=== PATIENT | female | born 2000 | race Caucasian/White ===

== ENCOUNTER 2023-04-19 11:27 | Emergency (ER) | payer BC, OTHER, SELFPAY ==
[2023-04-19 11:32] VITALS: BP 126/66; PULSE 86; RESP 18; TEMP 36.4; O2SAT 100
--- NOTE | 2023-04-19 15:04 | ED_ITS ---
HPI - General Adult General Time Seen by Provider: 15:04 <Harley Branch MD - Last Filed: 06/26/23 12:36> Date Seen: 04/19/23 <Harley Branch MD - Last Filed: 06/26/23 12:36> Chief complaint: Abdominal Pain <Harley Branch MD - Last Filed: 06/26/23 12:36> Stated complaint: blood in stool, mouth sores, abdominal pain <Harley Branch MD - Last Filed: 06/26/23 12:36> Time Seen by Provider: 04/19/23 15:01 <Harley Branch MD - Last Filed: 06/26/23 12:36> Source: patient <Harley Branch MD - Last Filed: 06/26/23 12:36> Mode of arrival: ambulatory <Harley Branch MD - Last Filed: 06/26/23 12:36> Limitations: no limitations <Harley Branch MD - Last Filed: 06/26/23 12:36> History of Present Illness HPI narrative: Madhuri is a 23-year-old female past medical history includes depression and anxiety presents emergency department via private car with abdominal pain. Patient states that intermittently over the last year she has had this problem, it started out as constipation, she thought she had hemorrhoids and had some bright red blood in her stool, with rectal pain, this resolved, she usually has multiple bowel movements per day which are usually loose, which is her normal, she does get intermittent bleeding with those loose stools, for the last 2 days she has not had a bowel movement. She tried some MiraLax and had some loose stool, but continues to have a generalized abdominal pain which is new for her. She was concerned because her mother had Crohn's disease. Patient denies any urinary complaints, patient uses an IUD. She denies any fevers or chills, no nausea vomiting, patient is eating and drinking normally. No changes with eating. Pain is lower abdominal area. Crampy in nature. No other concerns at this time. <Harley Branch MD - Last Filed: 06/26/23 12:36> Related Data Home medications: Home Medications Medication Instructions Recorded Confirmed lisdexamfetamine 30 mg capsule 30 mg PO DAILY 04/19/23 05/22/23 (Vyvanse) fluoxetine 40 mg capsule 80 mg PO QDAY 05/22/23 05/22/23 <Harley Branch MD - Last Filed: 06/26/23 12:36> Allergies/adverse reactions: Allergies Allergy/AdvReac Type Severity Reaction Status Date / Time No Known Drug Allergies Allergy Verified 05/22/23 14:45 <Harley Branch MD - Last Filed: 06/26/23 12:36> Review of Systems Status of ROS: Reports: 10 or more systems reviewed and unremarkable except as noted in History and below <Harley Branch MD - Last Filed: 06/26/23 12:36> [facility] Medical History: Medical History (Updated 05/22/23 @ 15:39 by Geovanna Kay MD) ADHD ?F90.9 - Attention-deficit hyperactivity disorder, unspecified type (ICD-10) Generalized anxiety disorder ?F41.1 - Generalized anxiety disorder (ICD-10) Major depression ?F32.9 - Major depressive disorder, single episode, unspecified (ICD-10) Bloody stools (~03/2022) ?K92.1 - Melena (ICD-10) <Harley Branch MD - Last Filed: 06/26/23 12:36> Surgical History: Surgical History (Updated 05/22/23 @ 15:36 by Geovanna Kay MD) No history of previous surgery <Harley Branch MD - Last Filed: 06/26/23 12:36> Family History: Family History (Updated 05/22/23 @ 15:37 by Geovanna Kay MD) Mother Crohn's disease Anxiety and depression Maternal Grandfather Bipolar disorder <Harley Branch MD - Last Filed: 06/26/23 12:36> Social History: Social History (Updated 05/23/23 @ 11:16 by Valerie Stafford ~ CTA) Narrative: , 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[employer], 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 Never smoker 4 alcoholic drinks a month No drug use What is your current living situation?: declined to answer Problems where you live: declined to answer In the past 12 months, utilities in danger of being shut off: declined to answer In past 12 months, lack of transportation kept you from medical appts, meetings, work, or getting things needed for daily living: declined to answer In the past 12 mos, have been you worried that your food would run out before you had money to buy more?: declined to answer In the past 12 mos, the food you bought just didn't last and you didn't have money to buy more?: declined to answer Smoking Status: Never smoker Do you use any of these nicotine containing products: None Second hand tobacco smoke exposure: No How often do you have a drink containing alcohol: never How often do you have six or more drinks on one occasion: Never AUDIT-C Alcohol total score: 0 Non-prescribed substance use: denies use How often does anyone, including family, friends and others, physically hurt you : decline to answer How often does anyone, including family, friends and others, insult or talk down to you: decline to answer How often does anyone, including family, friends and others, threaten you with harm: decline to answer How often does anyone, including family, friends and others, scream or curse at you: decline to answer Little interest or pleasure in doing things: not at all Feeling down, depressed, or hopeless: more than half the days service: No <Harley Branch MD - Last Filed: 06/26/23 12:36> Exam Narrative: Exam Narrative: General: No obvious distress sitting comfortably HEENT: Pupils equal round reactive light. Lungs: Clear to auscultation Heart: Normal sinus rhythm Abdomen: Mild tenderness to palpation the lower abdominal area, bowel sounds hyperactive, no guarding or rebound Muscle skeletal: +5 strength upper lower extremity Neuro: Alert awake and oriented x3 <Harley Branch MD - Last Filed: 06/26/23 12:36> Const: Vital Signs, click to edit/add: Vital Signs - 24 hr 04/19/23 11:32 Temperature 97.6 F Pulse Rate [Right Pulse Oximeter] 86 Respiratory Rate 18 Blood Pressure [Ri ght Upper Arm] 126/66 Pulse Oximetry 100 Oxygen Delivery Me thod Room Air <Harley Branch MD - Last Filed: 06/26/23 12:36> Vital Signs, click to edit/add: Vital Signs - 24 hr 04/19/23 11:32 Temperature 97.6 F Pulse Rate [Right Pulse Oximeter] 86 Respiratory Rate 18 Blood Pressure [Ri ght Upper Arm] 126/66 Pulse Oximetry 100 Oxygen Delivery Me thod Room Air <Rosario Angel MD - Last Filed: 04/19/23 20:56> Course Course ED Course: 3:20 PM: AIDET performed. Vitals are normal at this time, workup will include CBC, CRP, CMP, lipase, serum test, will await for lab results to see if further imaging will be obtained, will likely obtain XR abdomen decubitus and flat upright. Differential diagnosis include but not limited to appendicitis, bowel perforation, ectopic , volvulus and bowel obstruction. Other considerations include inflammatory bowel disease, cholecystitis, pancreatitis, hepatitis, gastritis, GERD pyelonephritis, nephrolithiasis, PID, cervicitis, IUP, DUB, ovarian cyst torsion as well as all etiologies <Harley Branch MD - Last Filed: 06/26/23 12:36> Reevaluation(s) Time of Reevaluation #1: 16:12 <Harley Branch MD - Last Filed: 06/26/23 12:36> Reevaluation #1: CBC showed leukocytosis with a left shift, CRP elevated at 6.1, urinalysis pending, metabolic panel within normal limits, the plan to obtain CT abdomen pelvis with IV contrast to rule out any intra-abdominal pathology. Patient's pain has been controlled. <Harley Branch MD - Last Filed: 06/26/23 12:36> Reevaluation #2: Urine preg negative. <Rosario Angel MD - Last Filed: 04/19/23 20:56> Reevaluation #3: Is asked to follow up with the patient's CT report which shows mild hyperemia and wall thickening of the terminal ileum and cecum. We discussed following up with GI for a colonoscopy and further diagnosis. Do have a strong suspicion of course for Crohn's disease. Unfortunately, patient is getting in 6 days so she is asking for some kind of symptom relief right away. We discussed putting her on a prednisone taper which the patient happily accepts. <Rosario Angel MD - Last Filed: 04/19/23 20:56> Vital Signs Vital signs: Initial Vital Signs Temperature 97.6 F 04/19/23 11:32 Temperature Source Temporal Artery Scan 04/19/23 11:32 Pulse Rate 86 04/19/23 11:32 Respiratory Rate 18 04/19/23 11:32 Blood Pressure 126/66 04/19/23 11:32 Blood Pressure Mean 86 04/19/23 11:32 Blood Pressure Position Sitting 04/19/23 11:32 Pulse Oximetry 100 04/19/23 11:32 Oxygen Delivery Method Room Air 04/19/23 11:32 Vital Signs Temperature 97.6 F 04/19/23 11:32 Pulse Rate 86 04/19/23 11:32 Respiratory Rate 18 04/19/23 11:32 Blood Pressure 126/66 04/19/23 11:32 Pulse Oximetry 100 04/19/23 11:32 Oxygen Delivery Method Room Air 04/19/23 11:32 Temperature 97.6 F 04/19/23 11:32 Pulse Rate 86 04/19/23 11:32 Respiratory Rate 18 04/19/23 11:32 Blood Pressure 126/66 04/19/23 11:32 Pulse Oximetry 100 04/19/23 11:32 Oxygen Delivery Method Room Air 04/19/23 11:32 <Harley Branch MD - Last Filed: 06/26/23 12:36> Initial Vital Signs Temperature 97.6 F 04/19/23 11:32 Temperature Source Temporal Artery Scan 04/19/23 11:32 Pulse Rate 86 04/19/23 11:32 Respiratory Rate 18 04/19/23 11:32 Blood Pressure 126/66 04/19/23 11:32 Blood Pressure Mean 86 04/19/23 11:32 Blood Pressure Position Sitting 04/19/23 11:32 Pulse Oximetry 100 04/19/23 11:32 Oxygen Delivery Method Room Air 04/19/23 11:32 Vital Signs Temperature 97.6 F 04/19/23 11:32 Pulse Rate 86 04/19/23 11:32 Respiratory Rate 18 04/19/23 11:32 Blood Pressure 126/66 04/19/23 11:32 Pulse Oximetry 100 04/19/23 11:32 Oxygen Delivery Method Room Air 04/19/23 11:32 Temperature 97.6 F 04/19/23 11:32 Pulse Rate 86 04/19/23 11:32 Respiratory Rate 18 04/19/23 11:32 Blood Pressure 126/66 04/19/23 11:32 Pulse Oximetry 100 04/19/23 11:32 Oxygen Delivery Method Room Air 04/19/23 11:32 <Rosario Angel MD - Last Filed: 04/19/23 20:56> Medical Decision Making MDM Narrative Medical decision making narrative: 23-year-old female with abdominal discomfort diarrhea. Signs and symptoms of her complains concerning for Crohn's disease. Patient is getting in 6 days therefore we will put her on steroid per above. She will follow up with GI for further management diagnoses. <Rosario Angel MD - Last Filed: 04/19/23 20:56> Lab Data Lab results reviewed: Yes I reviewed the patient's lab results <Rosario Angel MD - Last Filed: 04/19/23 20:56> Labs: Lab Results 04/19/23 04/19/23 Range/Units 15:15 15:19 WBC 12.72 H (4.50-11.00) K/uL RBC 5.21 H (4.00-5.20) m/uL Hgb 14.5 (12.0-16.0) gm/dL Hct 44.4 (33.0-51.0) % MCV 85 (80-100) fL MCH 28 (26-34) pg MCHC 33 (32-36) gm/dL RDW Coeff of Herbert 12.0 (11.5-15.5) % Plt Count 347 (140-440) K/uL Neut % (Auto) 80.7 H (42.0-72.0) % Lymph % (Auto) 10.6 L (20-44) % [place] % (Auto) 7.9 (0.0-11.0) % Eos % (Auto) 0.6 (0.0-7.0) % Baso % (Auto) 0.1 (0.0-3.0) % Neut # (Auto) 10.30 H (1.7-7.0) K/uL Lymph # (Auto) 1.30 (0.90-2.90) K/uL [place] # (Auto) 1.00 H (0.00-0.90) K/UL Eos # (Auto) 0.10 (0.00-0.50) K/uL Baso # (Auto) 0.00 (0.00-0.30) K/uL Abs Immat Gran (auto) 0.00 (0.00-0.30) K/uL Imm/Tot Granulo (auto) 0.1 % Sodium 134 L (135-149) mmol/L Potassium 3.9 (3.6-5.1) mmol/L Chloride 98 (96-114) mmol/L Carbon Dioxide 28 (20-32) mmol/L Anion Gap 8 (7-15) mEq/L BUN 12 (5-24) mg/dL Creatinine 0.7 (0.5-1.5) mg/dL Estimated Creat Clear 113.43 Estimated GFR 125 ml/min Glucose 91 (60-115) mg/dL Calcium 9.9 (8.4-10.6) mg/dL Total Bilirubin 0.7 (0.1-1.5) mg/dL AST 26 (12-35) U/L ALT 20 (4-35) U/L Alkaline Phosphatase 82 (40-150) U/L C-Reactive Protein 6.1 H (0.5-1.0) mg/dL Total Protein 8.5 H (6.0-8.3) g/dL Albumin 4.8 (3.3-5.0) g/dL HCG, Qual Negative (Negative) Urine Color Yellow (Yellow) Urine Appearance Clear (Clear) Urine pH 7.0 (5.0-8.5) Ur Specific [place] 1.025 (1.000-1.030) Urine Protein Trace A (Negative) Urine Glucose (UA) Negative (Negative) Urine Ketones 1+ A (Negative) Urine Blood Negative (Negative) Urine Nitrite Negative (Negative) Urine Bilirubin Negative (Negative) Urine Urobilinogen 0.2 (0.2-1.0) Ur Leukocyte Esterase Negative (Negative) Urine RBC 0-2 (0-2) Urine WBC 0-2 (0-5) Urine WBC Clumps Few A (None) Ur Squamous Epith Cells Few (None-Few) Urine Bacteria Moderate A (None) Urine Mucus Few A (None) <Harley Branch MD - Last Filed: 06/26/23 12:36> Lab Results 04/19/23 04/19/23 Range/Units 15:15 15:19 WBC 12.72 H (4.50-11.00) K/uL RBC 5.21 H (4.00-5.20) m/uL Hgb 14.5 (12.0-16.0) gm/dL Hct 44.4 (33.0-51.0) % MCV 85 (80-100) fL MCH 28 (26-34) pg MCHC 33 (32-36) gm/dL RDW Coeff of Herbert 12.0 (11.5-15.5) % Plt Count 347 (140-440) K/uL Neut % (Auto) 80.7 H (42.0-72.0) % Lymph % (Auto) 10.6 L (20-44) % [place] % (Auto) 7.9 (0.0-11.0) % Eos % (Auto) 0.6 (0.0-7.0) % Baso % (Auto) 0.1 (0.0-3.0) % Neut # (Auto) 10.30 H (1.7-7.0) K/uL Lymph # (Auto) 1.30 (0.90-2.90) K/uL [place] # (Auto) 1.00 H (0.00-0.90) K/UL Eos # (Auto) 0.10 (0.00-0.50) K/uL Baso # (Auto) 0.00 (0.00-0.30) K/uL Abs Immat Gran (auto) 0.00 (0.00-0.30) K/uL Imm/Tot Granulo (auto) 0.1 % Sodium 134 L (135-149) mmol/L Potassium 3.9 (3.6-5.1) mmol/L Chloride 98 (96-114) mmol/L Carbon Dioxide 28 (20-32) mmol/L Anion Gap 8 (7-15) mEq/L BUN 12 (5-24) mg/dL Creatinine 0.7 (0.5-1.5) mg/dL Estimated Creat Clear 113.43 Estimated GFR 125 ml/min Glucose 91 (60-115) mg/dL Calcium 9.9 (8.4-10.6) mg/dL Total Bilirubin 0.7 (0.1-1.5) mg/dL AST 26 (12-35) U/L ALT 20 (4-35) U/L Alkaline Phosphatase 82 (40-150) U/L C-Reactive Protein 6.1 H (0.5-1.0) mg/dL Total Protein 8.5 H (6.0-8.3) g/dL Albumin 4.8 (3.3-5.0) g/dL HCG, Qual Negative (Negative) Urine Color Yellow (Yellow) Urine Appearance Clear (Clear) Urine pH 7.0 (5.0-8.5) Ur Specific [place] 1.025 (1.000-1.030) Urine Protein Trace A (Negative) Urine Glucose (UA) Negative (Negative) Urine Ketones 1+ A (Negative) Urine Blood Negative (Negative) Urine Nitrite Negative (Negative) Urine Bilirubin Negative (Negative) Urine Urobilinogen 0.2 (0.2-1.0) Ur Leukocyte Esterase Negative (Negative) Urine RBC 0-2 (0-2) Urine WBC 0-2 (0-5) Urine WBC Clumps Few A (None) Ur Squamous Epith Cells Few (None-Few) Urine Bacteria Moderate A (None) Urine Mucus Few A (None) <Rosario Angel MD - Last Filed: 04/19/23 20:56> Imaging Data CT scan - abdomen: Attestation: I have reviewed the pertinent imaging results. <Rosario Angel MD - Last Filed: 04/19/23 20:56> Radiologist's impression: CT abdomen and pelvis acquired with 89 cc Isovue 370 IV contrast. COMPARISON: None. FINDINGS: Lower chest: The visualized lower lungs are aerated. No pleural or pericardial effusion. ABDOMEN: Liver: Normal enhancement. Focal fatty infiltration adjacent to the falciform ligament. Gallbladder and biliary: Normal gallbladder without radiopaque stone. Normal caliber bile ducts. Spleen: Normal size and enhancement. Pancreas: Normal enhancement without peripancreatic inflammatory changes or ductal dilatation. Adrenal glands: Normal adrenal glands. Kidneys and ureters: Normal enhancement. No radio-opaque calculi. No hydroureteronephrosis. GI tract: The stomach is relatively decompressed. Normal caliber small and large bowel loops. Normal appendix. Mild hyperemia and wall thickening of the terminal ileum and cecum. No discrete areas of complex penetrating diseases or fibrous stenotic dilatation. Vascular structures: Normal caliber abdominal aorta. Lymph nodes: Enlarged and borderline enlarged right lower quadrant lymph nodes measuring up to 15 millimeters. Peritoneum: Trace free fluid, potentially physiologic. PELVIS: Genitourinary system: Although relatively decompressed there is suggestion of circumferential wall thickening of the urinary bladder. Recommend correlation with urinalysis if not already performed to assess for underlying cystitis. Appropriately positioned IUD. Dominant left ovarian cyst. SKELETAL STRUCTURES AND SOFT TISSUES: No suspicious lytic or blastic lesions. IMPRESSION: 1. Mild hyperemia and wall thickening of the terminal ileum and cecum. No discrete areas of complex penetrating diseases or fibro stenotic dilatation. Findings are nonspecific however can be seen in the setting of underlying inflammatory bowel disease if clinically warranted. No focal drainable fluid collections. 2. Although relatively decompressed there is suggestion of circumferential wall thickening of the urinary bladder. Recommend correlation with urinalysis if not already performed to assess for underlying cystitis. 3. Enlarged and borderline enlarged right lower quadrant lymph nodes measuring up to 15 millimeters. Bowel incompletely characterized on this exam, given concordant findings of the terminal ileum and cecum, these may be reactive. Other differential considerations include mesenteric lymphadenitis, infectious, or lymphoproliferative etiology. <Rosario Angel MD - Last Filed: 04/19/23 20:56> Discharge Plan Discharge Clinical Impression: Bowel wall thickening, Diarrhea, Abdominal pain <Harley Branch MD - Last Filed: 06/26/23 12:36> Patient Disposition: Home, Self-Care <Harley Branch MD - Last Filed: 06/26/23 12:36> Condition: Stable <Harley Branch MD - Last Filed: 06/26/23 12:36> Additional Instructions: Your workup today revealed thickening of the wall of the intestines. You do need a colonoscopy to further determine the meaning of this. In the meantime will try a steroid taper to see if we can get your symptoms better controlled until you get your workup done with a it risk and assurance manager. We will start prednisone 40 mg daily for 7 days then go down to 35 mg daily for 7 days (you will have 20 mg, 10 mg and 5 mg tablets prescribed to). You should continue tapering after that, however a new prescription should be provided by a it risk and assurance manager or your primary care provider. <Harley Branch MD - Last Filed: 06/26/23 12:36> Prescriptions: No Action fluoxetine 40 mg capsule 80 mg PO QDAY Vyvanse 30 mg capsule 30 mg PO DAILY <Harley Branch MD - Last Filed: 06/26/23 12:36> Follow Up/Referrals: Katherine Brown PA-C [Primary Care Provider] - <Harley Branch MD - Last Filed: 06/26/23 12:36> Stand Alone Forms: MyHealth Info Instructions <Harley Branch MD - Last Filed: 06/26/23 12:36>
[2023-04-19 15:26] LABS: Basophils Percent Auto 0.1 % (0.0-3.0); Eosinophils Percent Auto 0.6 % (0.0-7.0); Hematocrit 44.4 % (33.0-51.0); Hemoglobin* 14.5 gm/dL (12.0-16.0); Immature Granulocytes Pct Auto 0.1 %; Lymphocytes Percent Auto 10.6 % (20-44); Mean Corpuscular HGB Conc 33 gm/dL (32-36); Mean Corpuscular Hemoglobin 28 pg (26-34); Mean Corpuscular Volume 85 fL (80-100); Monocytes Percent Auto 7.9 % (0.0-11.0); Neutrophils Percent Auto 80.7 % (42.0-72.0); Platelet Count* 347 K/uL (140-440); Red Blood Count 5.21 m/uL (4.00-5.20); White Blood Count* 12.72 K/uL (4.50-11.00)
[2023-04-19 15:27] LABS: Slide Review Reflex No
[2023-04-19 15:30] LABS: Appearance Urine Clear (Clear); Bilirubin Urine Negative (Negative); Blood Urine Negative (Negative); Color Urine Yellow (Yellow); Glucose Urine Negative (Negative); Ketones Urine 1+ (Negative); Leukocyte Esterase Urine Negative (Negative); Nitrite Urine Negative (Negative); Protein Urine Trace (Negative); Specific Gravity Urine 1.025 (1.000-1.030); Urobilinogen Urine 0.2 (0.2-1.0)
[2023-04-19 15:40] LABS: RBC Urine 0-2 (0-2); WBC Urine 0-2 (0-5)
[2023-04-19 15:41] LABS: Bacteria Urine Moderate; Mucus Urine Few; Squamous Epithelial Cell Urine Few (None-Few); WBC Clumps Urine Few
[2023-04-19 15:42] LABS: Albumin* 4.8 g/dL (3.3-5.0); Chloride* 98 mmol/L (96-114); Sodium* 134 mmol/L (135-149)
[2023-04-19 15:43] LABS: Potassium* 3.9 mmol/L (3.6-5.1)
[2023-04-19 15:45] LABS: Alanine Aminotransferase* 20 U/L (4-35); Alkaline Phosphatase* 82 U/L (40-150); Anion Gap 8 mEq/L (7-15); Aspartate Amino Transferase* 26 U/L (12-35); Bilirubin Total* 0.7 mg/dL (0.1-1.5); Blood Urea Nitrogen* 12 mg/dL (5-24); Carbon Dioxide* 28 mmol/L (20-32); Creatinine* 0.7 mg/dL (0.5-1.5); Est. Creatinine Clearance* 113.43; Estimated Glomerular Filt Rate 125 ml/min; Total Protein* 8.5 g/dL (6.0-8.3)
[2023-04-19 15:46] LABS: Calcium* 9.9 mg/dL (8.4-10.6); Glucose* 91 mg/dL (60-115)
[2023-04-19 15:48] LABS: C Reactive Protein* 6.1 mg/dL (0.5-1.0)
--- NOTE | 2023-04-19 16:10 | CRLHL7_ITS ---
For Patients: As a result of the Century Cures Act, medical imaging exams and procedure reports are released immediately into your electronic medical record. You may view this report before your referring provider. If you have questions, please contact your health care provider. INDICATION: abdominal pain, blood in stool, family history of Crohns TECHNIQUE: CT abdomen and pelvis acquired with 89 cc Isovue 370 IV contrast. COMPARISON: None. FINDINGS: Lower chest: The visualized lower lungs are aerated. No pleural or pericardial effusion. ABDOMEN: Liver: Normal enhancement. Focal fatty infiltration adjacent to the falciform ligament. Gallbladder and biliary: Normal gallbladder without radiopaque stone. Normal caliber bile ducts. Spleen: Normal size and enhancement. Pancreas: Normal enhancement without peripancreatic inflammatory changes or ductal dilatation. Adrenal glands: Normal adrenal glands. Kidneys and ureters: Normal enhancement. No radio-opaque calculi. No hydroureteronephrosis. GI tract: The stomach is relatively decompressed. Normal caliber small and large bowel loops. Normal appendix. Mild hyperemia and wall thickening of the terminal ileum and cecum. No discrete areas of complex penetrating diseases or fibrous stenotic dilatation. Vascular structures: Normal caliber abdominal aorta. Lymph nodes: Enlarged and borderline enlarged right lower quadrant lymph nodes measuring up to 15 millimeters. Peritoneum: Trace free fluid, potentially physiologic. PELVIS: Genitourinary system: Although relatively decompressed there is suggestion of circumferential wall thickening of the urinary bladder. Recommend correlation with urinalysis if not already performed to assess for underlying cystitis. Appropriately positioned IUD. Dominant left ovarian cyst. SKELETAL STRUCTURES AND SOFT TISSUES: No suspicious lytic or blastic lesions. IMPRESSION: 1. Mild hyperemia and wall thickening of the terminal ileum and cecum. No discrete areas of complex penetrating diseases or fibro stenotic dilatation. Findings are nonspecific however can be seen in the setting of underlying inflammatory bowel disease if clinically warranted. No focal drainable fluid collections. 2. Although relatively decompressed there is suggestion of circumferential wall thickening of the urinary bladder. Recommend correlation with urinalysis if not already performed to assess for underlying cystitis. 3. Enlarged and borderline enlarged right lower quadrant lymph nodes measuring up to 15 millimeters. Bowel incompletely characterized on this exam, given concordant findings of the terminal ileum and cecum, these may be reactive. Other differential considerations include mesenteric lymphadenitis, infectious, or lymphoproliferative etiology. Please note that all CT scans at this facility use dose modulation, iterative reconstruction, and/or weight-based dosing when appropriate to reduce radiation dose to as low as reasonably achievable. Dictated by Julian Leal MD @ 04/19/2023 8:30:57 PM (Electronically Signed)
[2023-04-19 16:43] LABS: HCG Qualitative Serum* Negative (Negative)
== END 2023-04-19 21:10 | disposition home or self-care (01) ==
PROVIDERS: Student in an Organized Health Care Education/Training Program; Emergency Provider Family Medicine; PCP Physician Assistant
DX: K63.89 Other specified diseases of intestine (principal); R19.7 Diarrhea, unspecified; R10.9 Unspecified abdominal pain
CPT/HCPCS: 36415; 74177; 80053; 81003; 81015; 84703; 85025; 86140; 87086; 99284; 99285; Q9967

== ENCOUNTER 2023-05-22 15:06 | Outpatient (CLI) | payer BC, OTHER, SELFPAY | END 2023-05-22 15:07 | disposition home or self-care (01) | PROVIDERS: PCP Family Medicine; Visit Provider Family Medicine | DX: Z00.00 Encounter for general adult medical examination without abnormal findings (principal); R53.83 Other fatigue; K63.9 Disease of intestine, unspecified; K92.1 Melena | CPT/HCPCS: 80053; 80061; 84443 ==

== ENCOUNTER 2024-03-28 16:09 | Emergency (ER) | payer BC, OTHER, SELFPAY ==
[2024-03-28 16:15] VITALS: BP 116/65; PULSE 90; RESP 20; TEMP 36.7; O2SAT 98; BMI 29.1
--- NOTE | 2024-03-28 16:43 | ED_ITS ---
HPI - General Adult General Chief complaint: Abdominal Pain Stated complaint: Crohn's flareup, bloody stools Time Seen by Provider: 03/28/24 16:13 History of Present Illness HPI narrative: This 24-year-old female has Crohn's disease and was in to see her party planner yesterday. She has had a flare-up over the last couple weeks which includes some dark stool. Her hemoglobin yesterday was 9.0. She has had some ongoing stools like this so her doctor recommended she come in to have her hemoglobin checked. She is not currently on any medicine to control her Crohn's symptoms. She does not yet qualify for a biologic and this process is currently taking place. Her doctor did send in a prescription for a steroid which she has not yet started. She arrives here with normal vital signs and appears to be in no acute distress. She does not report any ongoing pain. She does have some brief episodes of crampy pain. She states that she is taking food and drink normally. Related Data Home Medications ?Medication ?Instructions ?Recorded ?Confirmed lisdexamfetamine 30 mg capsule 30 mg PO DAILY 04/19/23 05/22/23 (Vyvanse) fluoxetine 40 mg capsule 80 mg PO QDAY 05/22/23 03/28/24 mercaptopurine 50 mg tablet 100 mg PO DAILY 03/28/24 03/28/24 Allergies Allergy/AdvReac Type Severity Reaction Status Date / Time No Known Drug Allergies Allergy Verified 05/22/23 14:45 Review of Systems Status of ROS: Reports: 10 or more systems reviewed and unremarkable except as noted in History and below Narrative: Constitutional: No fevers, no weight gain or loss. Eyes: No discharge. No vision changes. HENT: No congestion, no sore throat, no ear pain. Cardiovascular: No chest pain, no palpitations. Respiratory: No shortness of breath, no wheezes, no cough. Gastrointestinal: Crampy abdominal pain episodes. Dark colored stools. Genitourinary: No dysuria, no hematuria. Musculoskeletal: Normal range of motion. Skin: No rashes, no pruritis. Neurological: No dizziness, weakness, sensory change, speech change. Endo/Heme/Allergies: No bruising or bleeding. No polydipsia. Pysch: no suicidality, no anxiety, no insomnia. All other systems reviewed and are negative. [facility] Medical History (Updated 03/28/24 @ 18:10 by Royce Anderson MD) ADHD ?F90.9 - Attention-deficit hyperactivity disorder, unspecified type (ICD-10) Generalized anxiety disorder ?F41.1 - Generalized anxiety disorder (ICD-10) Major depression ?F32.9 - Major depressive disorder, single episode, unspecified (ICD-10) Bloody stools (~03/2022) ?K92.1 - Melena (ICD-10) Surgical History (Updated 05/22/23 @ 15:36 by Geovanna Kay MD) No history of previous surgery Family History (Updated 05/22/23 @ 15:37 by Geovanna Kay MD) Mother Crohn's disease Anxiety and depression Maternal Grandfather Bipolar disorder Social History (Updated 05/23/23 @ 11:16 by Valerie Stafford ~ [facility]) Narrative: , 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 [employer], no children Never smoker 4 alcoholic drinks a month No drug use What is your current living situation?: declined to answer Problems where you live: declined to answer In the past 12 months, utilities in danger of being shut off: declined to answer In past 12 months, lack of transportation kept you from medical appts, meetings, work, or getting things needed for daily living: declined to answer In the past 12 mos, have been you worried that your food would run out before you had money to buy more?: declined to answer In the past 12 mos, the food you bought just didn't last and you didn't have money to buy more?: declined to answer Smoking Status: Never smoker Do you use any of these nicotine containing products: None Second hand tobacco smoke exposure: No How often do you have a drink containing alcohol: never How often do you have six or more drinks on one occasion: Never AUDIT-C Alcohol total score: 0 Non-prescribed substance use: denies use How often does anyone, including family, friends and others, physically hurt you : decline to answer How often does anyone, including family, friends and others, insult or talk down to you: decline to answer How often does anyone, including family, friends and others, threaten you with harm: decline to answer How often does anyone, including family, friends and others, scream or curse at you: decline to answer Little interest or pleasure in doing things: not at all Feeling down, depressed, or hopeless: more than half the days service: No Exam Narrative: Exam Narrative: Constitutional: Well-developed, well-nourished, no acute distress. HEENT: Normocephalic, atraumatic. Neck: Normal range of motion. Nontender. Supple. Heart: Regular. No murmurs. Normal rate. Intact distal pulses. Lungs: Clear to auscultation. No chest discomfort. No wheezes, rhonchi, or rales. Abdomen: Normal bowel sounds. Nontender. No rebound tenderness. Genitalia: Deferred. Back: No midline tenderness. Normal range of motion. Extremities: Normal range of motion. No injury. Skin: Intact. No rash. Warm. No erythema or pallor. Neurologic: No altered sensation. No weakness. Alert and oriented. Psychiatric: No suicidality. No anxiety or depression. No insomnia. Nursing notes and vitals signs are reviewed. Const: Vital Signs, click to edit/add: Vital Signs - 24 hr 03/28/24 16:15 Temperature 98.1 F Pulse Rate [Femora l] 90 Respiratory Rate 20 Blood Pressure [Ri ght Upper Arm] 116/65 Pulse Oximetry 98 Oxygen Delivery Me thod Room Air Course Vital Signs Vital signs: Initial Vital Signs Temperature 98.1 F 03/28/24 16:15 Temperature Source Temporal Artery Scan 03/28/24 16:15 Pulse Rate 90 03/28/24 16:15 Respiratory Rate 20 03/28/24 16:15 Blood Pressure 116/65 03/28/24 16:15 Blood Pressure Mean 82 03/28/24 16:15 Blood Pressure Position Sitting 03/28/24 16:15 Pulse Oximetry 98 03/28/24 16:15 Oxygen Delivery Method Room Air 03/28/24 16:15 Vital Signs Temperature 98.1 F 03/28/24 16:15 Pulse Rate 90 03/28/24 16:15 Respiratory Rate 20 03/28/24 16:15 Blood Pressure 116/65 03/28/24 16:15 Pulse Oximetry 98 03/28/24 16:15 Oxygen Delivery Method Room Air 03/28/24 16:15 Temperature 98.1 F 03/28/24 16:15 Pulse Rate 90 03/28/24 16:15 Respiratory Rate 20 03/28/24 16:15 Blood Pressure 116/65 03/28/24 16:15 Pulse Oximetry 98 03/28/24 16:15 Oxygen Delivery Method Room Air 03/28/24 16:15 Medications Administered Medications: Discontinued Medications Generic Name Dose Route Start Last Admin Trade Name Tony PRN Reason Stop Dose Admin Dexamethasone 10 mg 03/28/24 16:40 03/28/24 17:02 Dexamethasone 10 Mg/Ml Inj PO 03/28/24 16:41 10 mg ONCE ONE Administration Medical Decision Making MDM Narrative Medical decision making narrative: This patient comes in for recheck of her hemoglobin as she has had some dark stools related to a Crohn's flare up. She had her hemoglobin checked a couple days ago and it returned at 9.0. Today it returns at 8.8. She does have normal vital signs and is not complaining of any pain. She does have a prescription for a steroid from her party planner but has not yet started taking this. She did receive an oral dose of dexamethasone 10 mg here. Other lab results are reassuring. The patient was able to take food and drink and is okay to be discharged home. Lab Data Labs: Lab Results 03/28/24 Range/Units 16:55 WBC 7.95 (4.50-11.00) K/uL RBC 3.44 L (4.00-5.20) m/uL Hgb 8.8 L (12.0-16.0) gm/dL Hct 29.1 L (33.0-51.0) % MCV 85 (80-100) fL MCH 26 (26-34) pg MCHC 30 L (32-36) gm/dL RDW Coeff of Herbert 14.5 (11.5-15.5) % Plt Count 458 H (140-440) K/uL Neut % (Auto) 66.5 (42.0-72.0) % Lymph % (Auto) 24.2 (20-44) % [place] % (Auto) 6.2 (0.0-11.0) % Eos % (Auto) 2.4 (0.0-7.0) % Baso % (Auto) 0.4 (0.0-3.0) % Neut # (Auto) 5.30 (1.7-7.0) K/uL Lymph # (Auto) 1.92 (0.90-2.90) K/uL [place] # (Auto) 0.50 (0.00-0.90) K/UL Eos # (Auto) 0.19 (0.00-0.50) K/uL Baso # (Auto) 0.03 (0.00-0.30) K/uL Abs Immat Gran (auto) 0.02 (0.00-0.30) K/uL Imm/Tot Granulo (auto) 0.3 % Sodium 137 (135-149) mmol/L Potassium 3.7 (3.6-5.1) mmol/L Chloride 105 (96-114) mmol/L Carbon Dioxide 26 (20-32) mmol/L Anion Gap 6 L (7-15) mEq/L BUN 18 (5-24) mg/dL Creatinine 0.7 (0.5-1.5) mg/dL Estimated Creat Clear 112.47 Estimated GFR 125 ml/min Glucose 132 H (60-115) mg/dL Calcium 8.9 (8.4-10.6) mg/dL Discharge Plan Discharge Clinical Impression: Crohn's disease, Acute GI bleeding Patient Disposition: Home, Self-Care Condition: Stable Additional Instructions: Take medications as prescribed. Avoid use of NSAIDs. Consider taking a proton pump inhibitor such as Prilosec, Prevacid, or Nexium. Follow-up with gastroenterology for ongoing management. Return if worsening. Prescriptions: No Action fluoxetine 40 mg capsule 80 mg PO QDAY Vyvanse 30 mg capsule 30 mg PO DAILY mercaptopurine 50 mg tablet 100 mg PO DAILY Follow Up/Referrals: Geovanna Kay MD [Primary Care Provider] - Stand Alone Forms: [facility] Info Instructions
[2024-03-28] MEDS: dexAMETHasone 10 MG/ML inj PO (17:02)
[2024-03-28 17:04] LABS: Basophils Absolute Auto 0.03 K/uL (0.00-0.30); Basophils Percent Auto 0.4 % (0.0-3.0); Eosinophils Absolute Auto 0.19 K/uL (0.00-0.50); Eosinophils Percent Auto 2.4 % (0.0-7.0); Hematocrit 29.1 % (33.0-51.0); Hemoglobin* 8.8 gm/dL (12.0-16.0); Immature Granulocytes Abs Auto 0.02 K/uL (0.00-0.30); Immature Granulocytes Pct Auto 0.3 %; Lymphocytes Absolute Auto 1.92 K/uL (0.90-2.90); Lymphocytes Percent Auto 24.2 % (20-44); Mean Corpuscular HGB Conc 30 gm/dL (32-36); Mean Corpuscular Hemoglobin 26 pg (26-34); Mean Corpuscular Volume 85 fL (80-100); Monocytes Percent Auto 6.2 % (0.0-11.0); Neutrophils Percent Auto 66.5 % (42.0-72.0); Platelet Count* 458 K/uL (140-440); RDW Coefficient of Variation % 14.5 % (11.5-15.5); Red Blood Count 3.44 m/uL (4.00-5.20); White Blood Count* 7.95 K/uL (4.50-11.00)
[2024-03-28 17:13] LABS: Chloride* 105 mmol/L (96-114); Potassium* 3.7 mmol/L (3.6-5.1); Sodium* 137 mmol/L (135-149)
[2024-03-28 17:16] LABS: Anion Gap 6 mEq/L (7-15); Carbon Dioxide* 26 mmol/L (20-32); Creatinine* 0.7 mg/dL (0.5-1.5); Est. Creatinine Clearance* 112.47; Estimated Glomerular Filt Rate 125 ml/min
--- OUTSIDE RECORDS SUMMARY | 2024-03-28 17:16 | XMS_ITS | Encounter Summary ---
Author Organization [facility] Address [address] [place] [address] Care Team Providers Care Ict Educator Name Role Phone Mayra Marino PA-C Primary Care Provider Encounter Details Date Type Department Care Team (Late st Contact Info) Description 06/13/2019 Consent for Procedure/Treatmen t [facility] [address] [place] [address] Galo Joshi, DO [address] [place] [address] MIRENA IUD CONSENT Social History Tobacco Use Types Packs/Day Years Used Date Smoking Tobacco: Never Smokeless Tobacco: Never Alcohol Use Standard Drinks/Week Comments No 0 (1 standard drink = 0.6 oz pur e alcohol) Sex and Gender Information Value Date Recorded Sex Assigned at Not on file Gender Identity Not on file Sexual Orientation Not on file documented as of this encounter Plan of Treatment Not on file documented as of this encounter Visit Diagnoses Not on filedocumented in this encounter Care Teams Ict Educator Relationship Specialty Start Date End Date Mayra Marino PA-C [address] [place] [address] PCP - General Physician [employer] 05/10/17 documented as of this encounter
--- OUTSIDE RECORDS SUMMARY | 2024-03-28 17:16 | XMS_ITS | Clinical Summary ---
Author Organization [facility] Address [address] [facility] [place] [address] Care Team Providers Care Watch Assembly Instructor Name Role Phone Mayra Marino PA-C Primary Care Provider [phone] Source Comments You are receiving this document as you are listed as the primary care provider,follow-up provider, or the patient has been referred to you for consultation.This is in compliance with the Medicare and[facility] EHR Incentive Program,which states Providers who transition their patient to another setting of careor provider of care or refers their patient to another provider of care shouldprovide summary care record for each transition of care or referral. [facility] Allergies No known active allergies Medications Medication Sig Dispensed Refills Start Date End Date Status lurasidone (LATUDA) 40 MG tablet Take 40 mg by mouth daily with food. Active levonorgestrel (MIRENA) 20 MCG/24HR IUDIndications:Encou nter for insertion of intrauterine contraceptive device 1 Each by Intrauterine route continuous. 06/13/2019 06/11/2024 Active Active Problems Problem Noted Date Diagnosed Date IUD (intrauterine device) in place 06/13/2019 Overview (06/13/2019): Mirena placed 06/13/2019. Due for removal in 7 years 06/13/2026. Attention deficit hyperactiv ity disorder (ADHD), predominantly inattentive type 05/24/2017 Overview (05/24/2017): Psychiatry Halina Joshi Zacarias Anxiety 05/24/2017 Recurrent major depressive disorder 05/24/2017 Bipolar disorder 05/24/2017 Immunizations Name Administration Dates Next Due 4vHPV (Gardasil) 09/29/2014,07/28/2014 9vHPV (Gardasil 9) 05/24/2017 DTaP 10/06/2005, 2,2001,03/05 H1N1 Miv Sanofi 3+ Yr (Injec loretta)([facility]) 08/18/2009 H1n1 Miv Novartis 4+ Yr (Injected) 07/21/2009 HepB Ped/Adol (0-18 yrs) 05/07/2002,2001,0 2001 Hib (PedvaxHIB) 05/07/2002,2001,2001 Hib/HBV 05/07/2002,2001,2001 IPV (Polio) 10/06/2005, 2,2001,03/05 Influenza IIV4 (Quadrivalent ) 0.5mL (02243) 06/29/2018,05/24/2017,06/15/2016 Influenza LAIV (Nasal, 2-49 yrs) 07/09/2015 Influenza Vaccine, Nasal ([facility]) 06/11/2012 Influenza, Unspecified Formulation 06/11/2008 MCV4 (Menactra) 03/04/2013 MCV4 Menveo 2m.+ (two vial) 05/24/2017 MMR 10/06/2005,02/17/2002 Meningococcal MCV4, Unspecif ied Formulation 03/04/2013 Pneumococcal 7, PED 05/07/2002,2001,2000 Tdap 03/04/2013 Varicella 03/04/2013,05/20/2004 Social History Tobacco Use Types Packs/Day Years Used Date Smoking Tobacco: Never Smokeless Tobacco: Never Tobacco Cessation:Counseling Given: No Alcohol Use Standard Drinks/Week Comments No 0 (1 standard drink = 0.6 oz pur e alcohol) Sex and Gender Information Value Date Recorded Sex Assigned at Not on file Gender Identity Not on file Sexual Orientation Not on file Last Filed Vital Signs Vital Sign Reading Time Taken Comments Blood Pressure 106/70 06/13/2019 9:23 AM AGRICULTURE LABORATORY TECHNICIAN Pulse 78 06/13/2019 9:23 AM AGRICULTURE LABORATORY TECHNICIAN Temperature 36.9 ??C (98.4 ??F) 11/25/2018 8:06 AM CD T Respiratory Rate 12 11/25/2018 8:06 AM CDT Oxygen Saturation 100% 12/15/2017 8:19 AM CDT Inhaled Oxygen Concentration - - Weight 89.8 kg (198 lb) 06/13/2019 9:23 AM AGRICULTURE LABORATORY TECHNICIAN Height 165.1 cm (5' 5) 06/09/2019 11:50 AM AGRICULTURE LABORATORY TECHNICIAN Body Mass Index 32.95 06/09/2019 11:50 AM AGRICULTURE LABORATORY TECHNICIAN Plan of Treatment Health Maintenance Due Date Last Done Comments Cervical Cancer Screening Due 2001 Hep C Screening (Preventive Services) 2001 MTM Covered 2001 HIV Screening (Preventive Services) 2017 Adult Preventive Visit 2019 05/24/2017 Chlamydia 06/13/2020 06/13/2019 DTaP/Tdap/Td (6 - Tdap) 03/04/2023 03/04/20 13, 10/06/2005, 05/07/2002, Additional history exists COVID-19 Vaccine ( season) 2023 Influenza (#1) 2024 04/08/2019, 06/07, 05/24/2017, Additional history exists Zoster/Shingles (1 of 2) 2051 HepB Completed 05/07/2002, 09/2001, 2001, Additional history exists Hib Completed 05/07/2002, 09/2001, 2001, Additional history exists Pneumococcal Aged Out 05/07/2002, 01/2002, 2001 No longer eligible based on patient's age to complete this topic IPV (Polio) Completed 10/06/2005, 01/2002, 2001, Additional history exists Varicella Completed 03/04/2013, 05/20/2004 HPV Vaccine Completed 05/24/2017, 09/07, 07/28/2014 MCV4 Completed 05/24/2017, 02/05, 03/04/2013 HepA Aged Out No longer eligi ble based on patient's age to complete this topic Procedures Procedure Name Priority Date/Time Associated Diagnosis Comments CHLAMYDIA, URINE (14 YEARS AND OLDER) Routine 06/13/2019 10:16 AM AGRICULTURE LABORATORY TECHNICIAN Screening for STDs (sexually transmitted diseases) from Last 3 Months or Most Recently Relevant to Health Maintenance Results * Chlamydia, Urine (14 Years and older) (06/13/2019 10:16 AM AGRICULTURE LABORATORY TECHNICIAN) Chlamydia Trachomatis STD Not Detected Not Detected 06/13/2019 8:05 PM AGRICULTURE LABORATORY TECHNICIAN [facility] Urine Non-blood Collection / Unknown 06/13/2019 10:16 AM AGRICULTURE LABORATORY TECHNICIAN 06/13/2019 10:16 AM AGRICULTURE LABORATORY TECHNICIAN Narrative [facility] - 06/13/2019 8:05 PM AGRICULTURE LABORATORY TECHNICIAN Test performed by Molecular Detection Urine Volume submitted was greater than 30 ml. Excess collection volume may decrease test sensitivity. Galo Joshi DO LAB_1 [facility] [address] [address] [phone] from Last 3 Months or Most Recently Relevant to Health Maintenance Care Teams Watch Assembly Instructor Relationship Specialty Start Date End Date Mayra Marino PA-C [address] [place] [address] PCP - General Physician [employer] 05/10/17
--- OUTSIDE RECORDS SUMMARY | 2024-03-28 17:16 | XMS_ITS | Clinical Summary ---
Author Organization [facility] Address [place], [place] [address] Care Team Providers Care Apprentice Jockey Name Role Phone Svetlana Franz MD Primary Care Provider Allergies No known active allergies Social History Tobacco Use Types Packs/Day Years Used Date Smoking Tobacco: Never Smokeless Tobacco: Never Alcohol Use Standard Drinks/Week Comments Yes 0 (1 standard drink = 0.6 oz pur e alcohol) occasionally with friends Sex and Gender Information Value Date Recorded Sex Assigned at Not on file Gender Identity Not on file Sexual Orientation Not on file Obstetrics History Last Filed Vital Signs Vital Sign Reading Time Taken Comments Blood Pressure 132/71 05/30/2019 1:24 AM CDT Pulse 96 05/30/2019 1:24 AM CDT Temperature 36.5 ??C (97.7 ??F) 05/30/2019 1:24 AM CD T Respiratory Rate 16 05/30/2019 1:24 AM CDT Oxygen Saturation 96% 05/30/2019 1:24 AM CDT Inhaled Oxygen Concentration - - Weight 88.5 kg (195 lb) 05/30/2019 1:23 AM CDT Height 165.1 cm (5' 5) 05/30/2019 1:23 AM CDT Body Mass Index 32.45 05/30/2019 1:23 AM CDT Plan of Treatment Health Maintenance Due Date Last Done Comments Tdap 01/02/2012 Depression screening for age 12+ 2013 HIV for age 15-65 01/02/2016 HPV series for age 9-26 (1 - 3-dose series) 01/02/2016 BMI (ht and wt on same day) for age 18+ 2019 Hepatitis C screening for ag e 18-79 2019 Tetanus booster 2021 Pap test for age 21-65 2022 COVID-19 vaccine series ( season) 2023 Influenza for age 9-49 04/06/2024 Pneumococcal series for age 6-64 Aged Out No longer eligible based on patient's age to complete this topic Care Teams Apprentice Jockey Relationship Specialty Start Date End Date Svetlana Franz MD [address] [place] [id number] PCP - General 12/05/05
[2024-03-28 17:17] LABS: Blood Urea Nitrogen* 18 mg/dL (5-24); Calcium* 8.9 mg/dL (8.4-10.6); Glucose* 132 mg/dL (60-115)
[2024-03-28 17:45] LABS: Slide Review Reflex No
== END 2024-03-28 18:26 | disposition home or self-care (01) ==
PROVIDERS: Emergency Provider Emergency Medicine Emergency Medical Services; PCP Family Medicine
DX: K50.90 Crohn's disease, unspecified, without complications (principal); K92.2 Gastrointestinal hemorrhage, unspecified
CPT/HCPCS: 36415; 80048; 85025; 99283; 99284; J1100